=== PATIENT | male | born 1980 ===

== ENCOUNTER 2024-03-01 05:05 | Day surgery (SDC) | payer OTHER ==
[~2024-03-01 05:05] MED LIST: NORVASC10 MG PO
[2024-03-01] MEDS ORDERED: POVIDONE-IODINE 118 ML BOTT TOP ONE (08:41)
[2024-03-01] MEDS ORDERED: DIBUCAINE 30 GM TUBE ONE (08:41)
[2024-03-01] MEDS ORDERED: BUPIVACAINE HCL/MPF 0.5% 30ML VIAL ONE (08:41)
[2024-03-01] MEDS ORDERED: LIDOCAINE HCL 1%/EPINEPHRINE 20ML VIAL IJ ONE (08:42)
[2024-03-01] MEDS ORDERED: HEMOSTATIC MATRIX 1 KIT KIT TOP ONE (08:42)
[2024-03-01] MEDS ORDERED: CEFTRIAXONE SODIUM 2,000 MG VIAL ONE (08:46)
[2024-03-01] MEDS ORDERED: METRONIDAZOLE/SODIUM CHLORIDE 500 MG/100 ML PIGGYBACK IV ONE (08:46)
[2024-03-01] MEDS ORDERED: NEURONTIN300 MG PO (13:23)
[2024-03-01] MEDS ORDERED: CELECOXIB200 MG PO (13:23)
[2024-03-01] MEDS ORDERED: PERCOCET 5-3251 EACH PO (13:24)
== END 2024-03-01 17:30 | disposition home or self-care (01) ==
LOC: CIR.AMB 05:05
PROVIDERS: ATTEND Surgery
DX: D12.9 Benign neoplasm of anus and anal canal (principal); A63.0 Anogenital (venereal) warts; I10 Essential (primary) hypertension; J45.909 Unspecified asthma, uncomplicated; G47.30 Sleep apnea, unspecified